=== PATIENT | male | born 1985 | race Caucasian/White ===

== ENCOUNTER 2016-11-07 10:00 | Emergency (ER) | payer OTHER ==
[~2016-11-07] VITALS: Ht 160 cm; Wt 65.0 kg
[2016-11-07 10:02] VITALS: Ht 160 cm; Wt 65.0 kg
--- NOTE | 2016-11-07 10:32 | ERD ---
ER Documentation Chief Complaint Date/Time DATE: 11/07/16 TIME: 10:30 Chief Complaint USING CRYSTAL METH ON THE STREET IN [place] WITH POLICE HPI This a 31-year-old male who is here for clearance for booking into skilled nursing. Patient was seen here at school and a suspicious person was called. The patient admits to using crystal meth. He says use meth last night. The patient has no physical complaints. Patient has a psych history and is not suicidal he thinks he has a chip implanted in his scalp. ROS All systems reviewed and are negative except as per history of present illness. PMhx/Soc Medical and Surgical Hx: pt denies Medical Hx, pt denies Surgical Hx Hx Alcohol Use: Yes Hx Substance Use: Yes (Crystal meth) Hx Tobacco Use: Yes Smoking Status: Current every day smoker FmHx Family History: No coronary disease Physical Exam Vitals Vital Signs Date Time Temp Pulse Resp B/P Pulse Ox O2 Delivery O2 Flow Rate FiO2 11/07/16 10:02 97.6 107 20 134/92 100 Physical Exam Const: Well-developed, well-nourished Head: Atraumatic, normocephalic small patch of alopecia where he picks at his here for this chip is supposed to be located Eyes: Normal Conjunctiva, PERRLA, EOMI, normal sclera, no nystagmus ENT: Normal External Ears, Nose and Mouth, moist mucus membranes. Neck: Full range of motion. No meningismus, no lymphadenopathy. Resp: Clear to auscultation bilaterally, no wheezing, rhonchi, rales Cardio: Regular rate and rhythm, no murmurs, S1 S2 present Abd: Soft, non tender x 4, non distended. Normal bowel sounds, no guarding or rebound, no pulsitile abdominal masses or bruits Skin: No petechiae or rashes, no ecchymosis , no maculopapular rash Back: No midline or flank tenderness Ext: No cyanosis, or edema, FROM x 4, normal inspection, neurovascularly intact x 4 Neur: Awake and alert, STR 5/5 x 4, sensation intact x 4, no focal findings, cerebellum intact Psych: Normal Mood and Affect Procedures/MDM He is cleared okay to book Departure Diagnosis: Primary Impression: Encounter for medical clearance for patient hold Condition: Stable Patient Instructions: Medical Clearance For Psych Admission SCOTT CASIANO DO Nov 07, 2016 10:32
[2016-11-07 10:40] VITALS: BP 125/82; PULSE 82; RESP 18; TEMP 97.4
== END 2016-11-07 10:40 ==
LOC: E/R 10:00
DX: Z02.89 Encounter for other administrative examinations (principal); F17.210 Nicotine dependence, cigarettes, uncomplicated
CPT/HCPCS: 99282